=== PATIENT | male | born 1965 | race African-American/Black ===

== ENCOUNTER → 2017-11-03 | Outpatient (CLI) | payer OTHER ==
--- NOTE | 2017-11-03 12:04 | RADIOLOGY REPORT (SQ) ---
EXAM DESCRIPTION: MRI LT UPPER JOINT WITHOUT COMPLETED DATE/TIME: 11/03/2017 11:45 am REASON FOR STUDY: COMPLETE ROTATOR CUFF OR RUPTURE OF LEFT SHOULDER M75.122 COMPLETE ROTATR-CUFF TE AR/RUPTR OF LEFT SHOULDER, NO COMPARISON: None. TECHNIQUE: Left shoulder images acquired and stored on PACS. Multiplanar imaging to include fat sens itive sequences such as T1, water sensitive sequences such as FST2/STIR, cartilage sensitive sequence s such as FSPD/gradient-echo sequences. LIMITATIONS: None. 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 No marrow signal abnorm alities worrisome for occult fracture or aggressive marrow replacement process JOINT OR BURSAL EFFUSION: There is a small shoulder joint effusion communicating with the subacromial /subdeltoid bursa through a supraspinatus tear GLENO-HUMERAL ARTICULATION: Normal articulation. No subluxation. No cystic change. No osteophytes or cartilage loss. 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 Mild bony spurring, best shown on sagittal image 9 and coronal image s 11-13. ROTATOR CUFF AND INTERVAL: A full-thickness distal supraspinatus tendon tear is present, with a 2 x 2 cm bare area left humeral head and greater tuberosity. This is best shown on coronal image 11 and s agittal image 3-6. Fluid tracks along the superficial aspect of the subscapularis tendon to the musc ulotendinous junction follow-up best shown on coronal image 11. Infraspinatus intact. Subscapularis tendinopathy along its superior edge. No rotator interval tear. No rotator interval thickening to suggest adhesive capsulitis. LABRUM AND BICEPS LABRAL COMPLEX: Intact. No labral tear. Intra-articular long-head biceps tendon n ormal. Distal biceps in normal location in bicipital groove. REMAINDER OF LABRUM AND IGHL : No gross tear or paralabral cyst formation. Labral evaluation is less than optimal without joint distention. No thickening of IGHL to suggest adhesive capsulitis. PERIARTICULAR AND ADJACENT SOFT TISSUES: No masses or abnormal nodes. OTHER: No other significant finding. IMPRESSION: Full-thickness distal supraspinatus tear TECHNICAL DOCUMENTATION: JOB ID: [id number] [employer]- All Rights Reserved Reading location - IP/workstation name: [email or web address]
== END ==
LOC: RAD 10:49
PROVIDERS: ATTEND Orthopaedic Surgery
DX: M75.122 Complete rotator cuff tear or rupture of left shoulder, not specified as traumatic (principal)